=== PATIENT | male | born 1980 | race Hispanic/Latino ===

== ENCOUNTER 2017-11-08 23:53 | Emergency (ER) | payer SELFPAY ==
[~2017-11-08] VITALS: Ht 167.6 cm; Wt 76.9 kg
[2017-11-09] MEDS ORDERED: ONDANSETRON HCL 4 MG ORAL DISINTEGRATING TAB PO ONE (00:45)
[2017-11-09] MEDS ORDERED: DONNATAL/LIDOCAINE/MAALOX 30 ML SUSP PO ONE (00:45)
== END 2017-11-09 02:10 | disposition home or self-care (01) ==
LOC: FSED 23:53
DX: R10.13 Epigastric pain (principal); R11.0 Nausea; K29.00 Acute gastritis without bleeding
CPT/HCPCS: 99283